=== PATIENT | female | born 1990 | race Caucasian/White ===

== ENCOUNTER 2019-02-25 22:00 | Inpatient (IN) | payer OTHER ==
[2019-02-25] MEDS ORDERED: Zolpidem Tartrate 5 MG TAB PO PRN (22:14)
[2019-02-25] MEDS ORDERED: HYDROcodone/Acetaminophen 5/325 mg Tablet PO PRN (22:14)
[2019-02-25] MEDS ORDERED: Butorphanol Tartrate 1 MG/ML VIAL SLOW IVP PRN (22:14)
[2019-02-25] MEDS ORDERED: Promethazine HCl 25 MG/ML VIAL IM PRN (22:14)
[2019-02-25] MEDS ORDERED: Acetaminophen 500 MG TAB PO PRN (22:14)
[2019-02-25] MEDS ORDERED: Misoprostol 200 MCG TAB PR PRN (22:14)
[2019-02-25] MEDS ORDERED: NS / Oxytocin 40 units/1000ml 1,000 ML IV PRN (22:14)
[2019-02-25] MEDS ORDERED: Lidocaine 1% (PF) 30 ML VIAL SC PRN (22:14)
[2019-02-25] MEDS ORDERED: Ondansetron PF 4 MG/2 ML Vial IVP PRN (22:14)
[2019-02-25] MEDS ORDERED: Ibuprofen 800 MG TAB PO PRN (22:14)
[2019-02-25] MEDS: Lactated Ringer's 1,000 ML IV SCH (22:40)
[2019-02-25 22:54] LABS: Hemoglobin 13.4 g/dL (12.0-16.0); Mean Corpuscular HGB CONC 34.7 g/dL (32.0-36.0); Mean Corpuscular Hemoglobin 31.6 pg (27.0-31.0); Mean Platelet Volume 10.3 fL (7.4-10.4); Platelet Count 144 thou/uL (130-400); RBC Distribution Width 12.1 % (11.5-14.5); Red Blood Cell (RBC) Count 4.25 mill/uL (4.20-5.40); White Blood Cell (WBC) Count 13.5 thou/uL (4.8-10.8)
[2019-02-25] MEDS: Misoprostol 100 MCG TAB VAG SCH (22:55)
[2019-02-25] MEDS ORDERED: NS w/ Oxytocin 10 units 500 ML IV SCH (23:00)
[2019-02-25 23:17] VITALS: BMI 26.3
[2019-02-25 23:29] LABS: Syphilis Antibody Nonreactive (Nonreactive); Syphilis Antibody Index 0.05 S/CO (<1.00 Non-Reactive)
[2019-02-25 23:30] LABS: HBSAg Index 0.27 S/CO (0-0.99); Hep B Surf Ag Non-Reactive S/CO (NonReactive)
[2019-02-26] MEDS: Misoprostol 100 MCG TAB VAG SCH ×3 (03:00→12:45)
[2019-02-26] MEDS ORDERED: Fentanyl 4 mcg/Bup 0.1% Cadd 100 ML ONE (04:24)
[2019-02-26] MEDS ORDERED: Lidocaine 1.5%/Epinephrine 1:200,000 5 ML AMPUL IJ ONE ×2 (04:25)
[2019-02-26] MEDS: Lactated Ringer's 1,000 ML IV SCH ×2 (04:34→09:05)
[2019-02-26] MEDS ORDERED: Naloxone HCl 0.4 mg/ml Vial IVP PRN ×2 (05:18)
[2019-02-26] MEDS ORDERED: Ondansetron PF 4 MG/2 ML Vial IVP PRN ×2 (05:18→12:24)
[2019-02-26] MEDS ORDERED: diphenhydrAMINE 50 MG/ML VIAL IVP PRN (05:18)
[2019-02-26] MEDS ORDERED: ePHEDrine/0.9% NaCl/PF SYRINGE 50 mg/10 ml SLOW IVP PRN (05:18)
[2019-02-26] MEDS ORDERED: Lactated Ringer's 500 ML IV PRN (05:18)
[2019-02-26] MEDS ORDERED: Promethazine HCl 25 MG/ML VIAL IM PRN (05:18)
[2019-02-26] MEDS ORDERED: Eucerin (Mineral Oil/Petrolatum,White) 30 gm Jar TOP PRN (05:18)
[2019-02-26] MEDS ORDERED: Communication Order-Pharmacy FS SCH (05:30)
[2019-02-26] MEDS ORDERED: Fentanyl 4 mcg/Bupivacaine 0.1% Cassette 100 ML EPIDURAL SCH (05:30)
[2019-02-26] MEDS ORDERED: Bisacodyl 10 MG SUPP PR PRN (12:24)
[2019-02-26] MEDS ORDERED: NS / Oxytocin 40 units/1000ml 1,000 ML IV SCH (12:24)
[2019-02-26] MEDS ORDERED: Lanolin Ointment 7 GM TUBE TOP PRN (12:24)
[2019-02-26] MEDS ORDERED: Benzocaine-Menthol 82.5 ML CAN TOP PRN (12:24)
[2019-02-26] MEDS ORDERED: Milk Of Magnesia 30 ML UDCUP PO PRN (12:24)
[2019-02-26] MEDS ORDERED: Preparation H Ointment 28 GM TUBE PR PRN (12:24)
[2019-02-26] MEDS: Ibuprofen 800 MG TAB PO SCH ×2 (13:20→21:33)
[2019-02-26] MEDS: Ferrous Sulfate 325 MG TAB PO SCH (16:30)
[2019-02-26] MEDS ORDERED: Lidocaine 2% MPF 10 ML AMP (For Epidural Use) ONE (18:00)
[2019-02-26] MEDS: Docusate Calcium (SURFAK) 240 MG CAP PO SCH (21:33)
[2019-02-27] MEDS: Acetaminophen 325 MG TAB PO PRN ×3 (02:19→11:53)
[2019-02-27] MEDS: Ibuprofen 800 MG TAB PO SCH ×2 (05:42→13:41)
[2019-02-27 05:45] VITALS: TEMP 98
[2019-02-27 07:34] VITALS: BP 110/70
[2019-02-27] MEDS: Ferrous Sulfate 325 MG TAB PO SCH (07:34)
[2019-02-27] MEDS: Docusate Calcium (SURFAK) 240 MG CAP PO SCH (07:37)
--- NOTE | 2019-02-27 08:07 | PDOC.PP ---
Post Progress Note Post Day #: 1 PO intake tolerated: yes Flatus: yes Ambulation: yes Vital Signs (12 hours) Temp Pulse Resp BP Pulse Ox 02/27/19 07:33 98.0 F 71 18 110/70 98 02/27/19 05:43 98.0 F 72 16 116/62 98 02/27/19 02:25 98.2 F 65 16 124/60 96 Weight Weight 173 lb - Physical Examination Abdominal: + bowel sounds, lochia, no distention, appropriately TTP Result Diagrams: 02/25/19 22:42 Additional Labs: Post Labs Blood Type A POSITIVE 02/25/19 22:59 Hep Bs Antigen Non-Reactive S/CO (NonReactive) 02/25/19 22:42 - Assessment/Plan Post day 1 -doing well. D/c home. F/u 6 weeks.
[2019-02-27] MEDS ORDERED: Prenatal Vitamin 1 TAB PO SCH (09:00)
[2019-02-27] MEDS ORDERED: Adacel (T-DAP) 0.5 ML SYRINGE IM ONE (09:00)
== END 2019-02-27 16:40 | disposition home or self-care (01) | DRG 807 ==
LOC: L&D 22:10 → 3SE 02-26 13:44
PROVIDERS: ADMIT Obstetrics & Gynecology; ATTEND Obstetrics & Gynecology
PROC: 10E0XZZ Delivery of Products of Conception, External Approach (ICD-10-PCS; principal; 2019-02-26)
PROC: 0KQM0ZZ Repair Perineum Muscle, Open Approach (ICD-10-PCS; 2019-02-26)
PROC: 3E033VJ Introduction of Other Hormone into Peripheral Vein, Percutaneous Approach (ICD-10-PCS; 2019-02-26)
PROC: 3E0P7VZ Introduction of Hormone into Female Reproductive, Via Natural or Artificial Opening (ICD-10-PCS; 2019-02-26)
DX: O48.0 Post-term pregnancy (principal); Z37.0 Single live birth; O69.81X0 Labor and delivery complicated by cord around neck, without compression, not applicable or unspecified; Z3A.40 40 weeks gestation of pregnancy; Z88.0 Allergy status to penicillin; O70.1 Second degree perineal laceration during delivery
CPT/HCPCS: 36415; 51702; 85027; 86780; 86850; 86900; 86901; 87340; J2001; J2405; J3490

== ENCOUNTER 2019-04-27 09:39 | Day surgery (SDC) | payer OTHER ==
[2019-04-26 12:49] VITALS: BMI 22.0
--- NOTE | 2019-04-27 10:17 | ULT ---
Exam: THYROID ULTRASOUND: HISTORY: Palpable left thyroid nodule COMPARISON: None TECHNIQUE: Grayscale sagittal tenderness imaging of the thyroid gland performed. FINDINGS: Thyroid isthmus measures 0.2 cm. Right thyroid lobe measures 4.4 x 1.1 x 1.6 cm. Left thyroid lobe measures 1.8 x 2.2 x 4.0 cm. There are 2 hypoechoic areas in the right thyroid lobe. Largest is 0.6 cm in maximum dimension. There is an anechoic focus in the lower pole left lobe measuring 0.8 cm. There is a complex predomina ntly solid mass with small amounts of cystic degeneration in the mid portion left thyroid lobe measuring 1.9 x 1.5 x 2.3 cm. IMPRESSION: Multiple thyroid nodules. Largest thyroid nodule is in the left thyroid lobe. This nodule has a TIRAD S calculator score of TR4 (moderately suspicious). RECOMMENDATION: Given size, fine-needle aspiration is recommended and has been scheduled to be performed immediately after this examination. Transcribed Date/Time: 04/27/2019 1:03 PM
[2019-04-27] MEDS ORDERED: Lidocaine 1% PF 5 ML VIAL ONE (10:41)
[2019-04-27] MEDS ORDERED: Sodium Bicarbonate 2.5 MEQ/5 ML VIAL ONE (10:41)
--- NOTE | 2019-04-27 12:57 | ULT ---
ULTRASOUND GUIDED FINE NEEDLE ASPIRATION OF THE LEFT THYROID LOBE NODULE: HISTORY: Left thyroid lobe nodule. COMPARISON: 04/27/2019. FINDINGS: Successful ultrasound-guided fine needle aspiration. A total of four 25-gauge fine needle aspiration s were performed. There are no immediate or postprocedure complications. TECHNIQUE: Consent was obtained to perform an ultrasound-guided fine needle aspiration of a predominantly solid mass in the left thyroid lobe. The left neck was prepped and draped in sterile fashion. 1% Lidocain e, buffered with sodium bicarbonate, was used for local anesthesia. Under ultrasound guidance, 4 sep arate 25-gauge fine needle aspirations were performed. There are no immediate or postprocedure compl ications. IMPRESSION: Successful ultrasound-fine needle aspiration. Final pathologic diagnosis is pending. POS: OFF
[2019-04-27 16:23] VITALS: BP 106/66; TEMP 97.6
== END 2019-04-27 11:00 | disposition home or self-care (01) ==
LOC: ULT 09:39 → EDSTATUS 10:00 → ULT 11:00
PROVIDERS: ATTEND Otolaryngology Plastic Surgery within the Head & Neck
PROC: 0GBG3ZX Excision of Left Thyroid Gland Lobe, Percutaneous Approach, Diagnostic (ICD-10-PCS; principal; 2019-04-27)
PROC: BG44ZZZ Ultrasonography of Thyroid Gland (ICD-10-PCS; principal; 2019-04-27)
DX: E04.1 Nontoxic single thyroid nodule (principal); Z88.0 Allergy status to penicillin
CPT/HCPCS: 60100; 76536; 76942; 88173; 88305; J2001

== ENCOUNTER 2021-10-20 12:28 | Outpatient (CLI) | payer OTHER | END 2021-10-20 12:29 | disposition home or self-care (01) | LOC: BICULT 12:28 | PROVIDERS: ATTEND Otolaryngology Plastic Surgery within the Head & Neck | DX: E04.2 Nontoxic multinodular goiter (principal) | CPT/HCPCS: 76536 ==